=== PATIENT | male | born 1965 | race Two or more races ===

== ENCOUNTER 2021-02-18 10:49 | Emergency (ER) | payer OTHER ==
[~2021-02-18] VITALS: Ht 182.9 cm; Wt 113.4 kg
[2021-02-18] MEDS ORDERED: OLANZAPINE 10 MG VIAL IM ONE ×2 (11:30→11:36)
--- NOTE | 2021-02-18 11:30 | NUR ---
pt rec'd to er c/o si audio and visual hallucinations depression . si has a plan to cut himself x htn monitors applied to patient ua and labs sent to labAWAITING EVALUATION BY ER PROVIDER.
[2021-02-18 11:39] LABS: BASOPHILS # (AUTO) 0.1 K/uL (0.0-0.2); BASOPHILS % (AUTO) 0.7 % (0.0-2.0); EOSINOPHILS % (AUTO) 2.3 % (0.0-6.0); HEMATOCRIT 43 % (39-51); HEMOGLOBIN 14.6 g/dL (13.5-17.5); LYMPHOCYTES % (AUTO) 14.2 % (20.0-44.0); MEAN CORPUSCULAR HGB CONC 34 g/dl (31.0-36.0); MEAN CORPUSCULAR VOLUME 91 fL (80-96); MONOCYTES # (AUTO) 0.5 K/uL (0.1-1.30); MONOCYTES % (AUTO) 7.7 % (2.0-12.0); NEUTROPHILS # (AUTO) 5.4 K/uL (1.8-8.9); NEUTROPHILS % (AUTO) 75.1 % (43.0-81.0); PLATELET COUNT (AUTO) 188 K/uL (150-450); RED BLOOD CELL COUNT(AUTO) 4.78 MIL/uL (4.5-6.0); WHITE BLOOD COUNT (AUTO) 7.1 K/uL (4.3-11.0)
[2021-02-18 11:48] LABS: CALCIUM, SERUM 8.9 mg/dL (8.5-10.1); CARBON DIOXIDE 22 mmol/L (21-32); CHLORIDE 103 mmol/L (98-107); CREATININE 0.8 mg/dL (0.6-1.3); GLUCOSE 115 mg/dL (74-106); POTASSIUM 3.5 mmol/L (3.5-5.1); SODIUM SERUM 137 mmol/L (136-145); UREA NITROGEN, BLOOD 13 mg/dL (7-18)
--- NOTE | 2021-02-18 11:48 | NUR ---
pt covid test done sent to lab. meds given per md order left deltoid im tolerated welll eatting lunch
[2021-02-18 11:55] LABS: ALANINE AMINOTRANSFERASE 54 U/L (12-78); ALCOHOL, BLOOD < 3 mg/dL (0-0); ALKALINE PHOSPHATASE 49 U/L (46-116); ASPARTATE AMINOTRANSFERASE 42 U/L (15-37); BILIRUBIN,DIRECT 0.3 mg/dL (0.0-0.2); BILIRUBIN,TOTAL 1.1 mg/dL (0.2-1.0)
[2021-02-18 12:01] LABS: ACETAMINOPHEN < 10 ug/ml (10-30)
--- NOTE | 2021-02-18 12:45 | NUR ---
FAXED CLINICALS TO [facility] AWAITING COVID RESULT.
--- NOTE | 2021-02-18 13:26 | NUR ---
FAXED COVID RESULT TO [facility]
--- NOTE | 2021-02-18 13:32 | NUR ---
PT SLEEPING VSS CONT TO MONITOR
--- NOTE | 2021-02-18 17:42 | NUR ---
pt amb to br voied and had large bm back to bed montiors applied
--- NOTE | 2021-02-18 19:05 | NUR ---
rec'd report from ita franco for tina
--- NOTE | 2021-02-18 21:23 | NUR ---
ACCEPTED AT [facility] GALVAN REPORT# [phone] RENATO
--- NOTE | 2021-02-18 21:27 | NUR ---
[facility] ETA 90 MINS
--- NOTE | 2021-02-18 21:30 | NUR ---
REPORT GIVEN TO [facility] FOR [facility]
[2021-02-19 00:04] VITALS: BP 124/68
--- NOTE | 2021-02-19 00:04 | NUR ---
Transfer to [facility]
== END 2021-02-19 00:05 ==
LOC: ER 10:54
DX: F20.9 Schizophrenia, unspecified (principal); Z20.822 Contact with and (suspected) exposure to COVID-19
CPT/HCPCS: 36415; 80048; 80076; 80143; 80320; 85025; 87426; 96372; 99285; C9803; J3490; G0480